=== PATIENT | male | born 1975 | race Caucasian/White ===

== ENCOUNTER 2016-10-01 06:28 | Day surgery (SDC) | payer OTHER ==
[~2016-10-01] VITALS: Ht 177.8 cm; Wt 79.6 kg
[2016-10-01] VITALS (10 sets, daily range): BP systolic 121–157; BP diastolic 67–93; PULSE 70–84; RESP 12–17; O2SAT 93–100
[~2016-10-01 06:28] MED LIST: CeFAZolin Inj 2 GM in IV Premix 1 EACH IV ONE; IBUP-1827 PO; Lactated Ringer's 1,000 ML IV SCH
[2016-10-01] MEDS ORDERED: Dexamethasone 4 mg/mL Inj ONE (06:29)
[2016-10-01] MEDS ORDERED: Propofol 10,000 mCg/mL 20 mL Inj ONE (06:29)
[2016-10-01] MEDS ORDERED: Ketamine 10 mg/mL 20 mL Inj ONE (06:29)
[2016-10-01] MEDS ORDERED: Ondansetron 2 mg/mL 2 mL Inj ONE (06:29)
[2016-10-01] MEDS ORDERED: fentaNYL-PF 50 mCg/mL 2 mL Inj ONE (06:29)
[2016-10-01] MEDS ORDERED: Lactated Ringer's 1,000 ML IV ONE (07:08)
[2016-10-01] MEDS ORDERED: Ketorolac 15 mg/mL Inj IVPUSH ONE (07:20)
[2016-10-01] MEDS ORDERED: HYDROcodone-APAP 5-325 mg Tablet PO PRN (07:20)
--- NOTE | 2016-10-01 07:26 | PCM.ORTHOP ---
Orthopedic Operative Report Date of Service: Oct 01, 2016 Pre Operative Diagnosis right distal biceps rupture Post Operative Diagnosis same Procedure right distal biceps repair Surgeon Surgeon: Demetrius Carroll MD Assistants: Kem Gómez Indication for Procedure right distal biceps rupture Findings per dictation Details of Procedure Operative Indications: Jeff Delacruz is a 41-year-old male right-hand dominant who presents with right distal biceps rupture A clear explanation was given to the patient regarding the condition, the conservative and surgical options. It was emphasized that the risks and benefits of surgery include but are not limited to infection, wound healing problems, damage to adjacent structures such as nerves, blood vessels and tendons, intermediate project manager disability and pain, arthritis, hypersensitivity, deep vein thrombosis, pulmonary embolism and loss of limb or life. The likely post operative recovery and the instructions that are to be followed after surgery were also discussed and explained. The patient was invited to ask questions or seek clarification but there were none. The patient voiced understanding of the entire discussion and requested to move forward. Procedure: The correct side was reconfirmed and marked as the correct side. The patient was taken to the OR and transferred to the OR table without incident. A time-out was performed reconfirming the patients identity, laterality of surgery and proper administration of preoperative antibiotics. After smooth induction of anesthesia the extremity was prepped and draped in a sterile fashion with 2% Clorhexadine solution. A sterile tourniquet was applied. The incision was clearly marked out. We paused to reconfirm the procedure and laterality one last time. Incision was made with a #15 blade and subsequent sharp dissection was performed with aid of electrocautery to control the bleeding down to the level of the fascia. Appropriate full thickness skin flaps were subsequently developed. There was notable disruption of biceps from the trauma. The interval between the BR and pronator teres was identified and developed down to the level of the joint capsule. The lateral antebrachial cutaneous nerve was identified and retracted. Recurrent veins were isolated and coagulated with a bipolar electrocautery. The forearm was fully supinated and the area vacated by the ruptured biceps was identified. Using blunt disection and the cautery the radial tuberosity was exposed until there was good visualization. At this time the biceps tendon was palpated retracted into the upper arm and was delivered out of the wound. The tendon's overall condition was ratty. The very end was debrided and then whipstitched in a grasping fashion with a Fiberloop. This allowed for a good grasping stitch. Provisionally it appeared that the tendon could be reduced down to the level of the radial tuberosity. The tuberosity was then debrided and a guidepin was placed slightly distal to the exact center of the insertion point. This was checked with Fluoro to ensure correct placement. The near cortex was then reamed with a 7.5mm reamer. A cortical button was attached to the end of the suture and the elbow flexed. The button was introduced through the bone tunnel flipped and then appropriate tension was applied to reduce the tendon to the bone. The reduction was secure and ROM was checked demonstrated that the biceps was not under too much tension. A interference screw was inserted. The tourniquet was let down and bleeding was controlled. The wound was irrigated copiously with sterile saline solution. Subcutaneous closure was achieved with 2-0 vicryl followed by interrupted 3-0 nylon suture. Steri strips were then applied. The wound was then dressed in a sterile fashion and a posterior splint was applied. The patient was awoken gently from anesthesia and transferred to the PACU in stable condition. JDE DEVELOPER SURGEON: During the operation, the services of physician surgical coordinator were medically indicated and necessary to provide exposure of the operative site for the surgical procedure and to maintain the limb in a proper position to carry out the operation safely and efficiently. Without the qualified chiropractic assistant being present, it would have extended the operative procedure and made the procedure technically more difficult to perform. Please keep dressing clean dry and intact. Do not remove dressing until follow- up in clinic. Do not weight-bear on the affected extremity. You will follow up in clinic in 10-14 days for suture removal, and placement of new Steri- Strips. You will follow-up with me in clinic without x-rays at this time. You will follow-up with me at 6 weeks postop and may start weightbearing as tolerated at 6-8 weeks. depending on your motion and pain level. Please keep the affected extremity elevated when possible. You may use ice and/or heat as needed for comfort (preferably ice during the first 48-72 hours. Please feel free to call with any further questions, comments, and/or concerns. You have been given medications for pain, medication for possible constipation which is a side affect of the pain medications. Grafts, Implants: Implants-See Implant Record Complications There were no periprocedural complications identified. Condition Stable Anesthetic Administered: GA Catheters: None Output, Estimated Blood Loss: 10 Blood Admin during surgery: No Surgical Cast or Splint: Long Arm Splint Surgical Specimen Removed: No Specimen sent to Pathology: No copies to: Demetrius Carroll MD, Christopher L MD Oct 01, 2016 07:26
[2016-10-01] MEDS ORDERED: Bacitracin 50,000 unit Inj IRRIGATION ONE (07:27)
[2016-10-01] MEDS ORDERED: Lactated Ringer's 1,000 ML IV SCH (07:54)
[2016-10-01] MEDS ORDERED: Lactated Ringer's 500 ML IV PRN (07:54)
--- NOTE | 2016-10-01 07:54 | PCM.HPANE ---
Patient Data Surgeon Admitting Provider: Attending Provider:Demetrius Carroll MD Primary Care Physician:Dave Other Provider:Ricky Casper Anesthesia Reason for Visit Right Distal Biceps Rupture Ht/WT & BMI Height (Feet): 5 Height (Inches): 10.00 Weight (Kilograms): 79.6 Body Mass Index 25.00 Allergies Coded Allergies: No Known Allergies (Verified Allergy, Unknown, 09/29/16) Past Anesthesia History Anesthesia History: Denies:: Abnormal Airway, Difficult Intubation Diabetes History Hx Diabetes?: No MRSA MRSA: No Medications Hypertension Medication: No Home Meds Incl Beta Toyin: No Reported Medications Ibuprofen 600 Mg [id number] Mg PO QID PRN For Pain Ref 0 09/29/16 Discontinued Scripts Acetaminophen 500 Mg Tablet1,000 Mg PO TID PRN For Pain #60 TABLET Prov:Bo Garcia MD 01/21/15 Ibuprofen 800 Mg [id number] Mg PO TID PRN For Pain #45 TABLET Ref 0 Prov:Bo Garcia MD 01/21/15 Clindamycin HCl (Cleocin)300 Mg [id number] Mg PO QID #40 CAPSULE Prov:Timothy Das MD 12/15/14 Oxycodone (Roxicodone)5 Mg [id number] Mg PO Q4H PRN For Pain #10 TABLET Ref 0 Prov:Timothy Das MD 12/15/14 [ox] No Conflict Check Prov:Timothy Das MD 12/15/14 History History of ENT Problems?: No HEENT History: Denies:: Abnormal Airway Cataracts Difficult Intubation Dysphagia Glaucoma Hearing Problem Sinus Problem TMJ Denture Type: None Teeth Condition: Within Normal Limits Hx of Heart Problems?: No Cardiovascular History: Denies:: AICD Abdominal Aortic Aneurism Atrial Fibrillation Cardiac Surgery Chest Pain Congestive Heart Failure Coronary Artery Disease Edema Heart Murmur Hypertension Irregular Heartbeat Pacemaker Peripheral Vascular Rheumatic Fever Thrombophlebitis Valvular Heart Disease Hx of Respiratory Problem?: No Respiratory History: Denies:: Asthma COPD Chest Surgery Cough Dyspnea Emphysema Hemoptysis Oxygen Administration Pneumonia Pulmonary Embolism Tuberculosis Use of C-PAP Machine Use of Inhalers / NEBS Hx Neurologic Problems?: No Neurological History: Denies:: Alzheimer's Disease CVA Dementia Dizziness Headaches Multiple Sclerosis Parkinson's Disease Peripheral Neuropathy Seizures TIA Hx of GI Problems?: No Gastrointestinal History: Denies:: Cirrhosis Diverticulitis Gall Bladder Disease Gastroesphageal Reflux Gastrointestinal Bleeding Heartburn Hepatitis Hiatal Hernia Liver Disease Rectal Bleeding Hx of Problems?: No Male Hx: Denies:: Prostate Problems Scrotal Mass Testicular Surgery Skin History: Denies:: History Skin Disorders? Pressure Ulcers Hx Musculoskeletal Problems?: Yes Musculoskeletal History: Positive for:: Musculoskeletal Trauma (right distal biceps rupture current admission problem) Psycho Social History: Denies:: Suicide Attempt Hx Surgeries?: No Hx Any Other Health Problems?: Yes Hx Diabetes: No Hx Alcohol Use: YesAlcoholic Drinks Per Day: 1- 3 drinks daily per prior EMR Hx Substance Use: Yes (Hx of meth, heroin, ecstasy use per EMR- ED OD 2014) Smoking Status: Former Smoker Have You Smoked inLast 12 mo: No Stop/Bang Treated for Sleep Apnea?: No Do You Have a CPAP Machine?: No P-Blood Pressure: treated: No B- Body Mass Index > 35 kg/m2: No A- Age over 50: No N- Neck Large Circumference: No G- Gender Male: Yes PATRICIA Risk Assessment: Low Risk, <3 Yes Risk Assessment Category Category 1A: Patient has history of documented sleep apnea, and HAS NOT received any narcotic, sedative or anesthesia administration during this stay. Category 1B: Patient has history of documented sleep apnea, and HAS received any narcotic , sedative or anesthesia administration during this stay Category 2: Patient has SUSPECTED Obstructive Sleep Apnea, and HAS received any narcotic , sedative or anesthesia administration during this stay. Category 3: Patient has SUSPECTED Obstructive Sleep Apnea and HAS NOT received narcotic, sedative or anesthesia administration during this stay. Category 4: Outpatient in Procedural Areas with known sleep apnea or who screen positive for High Risk via the STOP/BANG questionnaire. Exam Exam Vital Signs Vital Signs Date Time Temp Pulse Resp B/P Pulse Ox O2 Delivery O2 Flow Rate FiO2 10/01/16 07:09 36.5 72 17 157/93 100 Room Air General Appearance: Alert, Oriented X3, Cooperative, No Acute Distress HEENT/AIRWAY: MP 2 Lungs: Clear to Auscultation, Normal Air Movement Heart: Exam Unremarkable, Regular Rate/Rhythm, No Murmurs/Rubs/Gallops Meds/Labs/Diagnostics Admission Meds Current Medications Lactated Ringer's (Lr) 1,000 ml @ ud STK-MED ONCE IV Last administered on 10/01t 07:08; Start 10/01/16 at 07:08; Stop 10/01/16 at 07:09; Status DC Plan Impression Patient chart reviewed, patient interviewed and anesthestic plan with risks, benefits, and alternatives discussed, and informed consent obtained. ASA Physical Status: ASA1 Normal Healthy Anesthetic Plan: GA Bene/Risks/Altern/Consents: Yes HP Complete Prior to Induction: Yes William Hercules MD Oct 01, 2016 07:54
[2016-10-01] MEDS ORDERED: HYDROmorphone 1 mg/mL Inj IVPUSH PRN (07:55)
[2016-10-01] MEDS ORDERED: Ropivacaine-PF 0.5% 30 mL Inj INJ ONE (07:55)
[2016-10-01] MEDS ORDERED: EPHEDrine Sulfate 50 mg/mL Inj IVPUSH PRN (07:55)
[2016-10-01] MEDS ORDERED: MetoCLOpramide 5 mg/mL 2 mL Inj IVPUSH PRN (07:55)
[2016-10-01] MEDS ORDERED: Phenylephrine 10,000 mCg/mL Inj IVPUSH PRN (07:55)
[2016-10-01] MEDS ORDERED: fentaNYL-PF 50 mCg/mL 2 mL Inj IVPUSH PRN (07:55)
[2016-10-01] MEDS ORDERED: Dexamethasone 4 mg/mL Inj IVPUSH PRN (07:55)
[2016-10-01] MEDS ORDERED: Ondansetron 2 mg/mL 2 mL Inj IVPUSH PRN (07:55)
--- NOTE | 2016-10-01 10:03 | PCM.ANEP1 ---
Post Anesthesia PACU Phase 1 Assessment Vital Signs Vital Signs Date Time Temp Pulse Resp B/P Pulse Ox O2 Delivery O2 Flow Rate FiO2 10/01/16 09:36 74 16 127/82 93 Room Air 10/01/16 09:30 36.4 70 13 124/74 97 Room Air 10/01/16 09:15 83 15 121/77 98 Simple Mask 8 10/01/16 09:10 84 15 128/72 98 Simple Mask 8 10/01/16 09:05 73 14 98 Simple Mask 8 10/01/16 09:00 73 12 141/86 98 Simple Mask 8 10/01/16 08:55 74 13 134/77 98 Simple Mask 8 10/01/16 08:50 73 15 126/72 99 Simple Mask 8 10/01/16 08:48 36.2 78 12 121/67 98 Simple Mask 8 10/01/16 07:09 36.5 72 17 157/93 100 Room Air Anesthetic Administered: GA Level of Alertness: Sleepy, easy to arouse OSEI's with Equal Strength: Yes Pain: Yes Nausea or Vomiting: No CV Function & Hydration Stable: Yes Airway Device: LMA Oxygen Delivery: Simple Mask Lungs: Clear to Auscultation, Normal Air Movement Dermatome Level: Full Sensation PACU Phase 2 Assessment Complications: No Follow up Care: No Patient Instructions Provided: N/A William Hercules MD Oct 01, 2016 10:03
== END 2016-10-01 23:59 | disposition home or self-care (01) ==
LOC: SAS 06:28
PROVIDERS: ATTEND Orthopaedic Surgery
DX: S46.211A Strain of muscle, fascia and tendon of other parts of biceps, right arm, initial encounter (principal); X50.0XXA Overexertion from strenuous movement or load, initial encounter; Y93.89 Activity, other specified; Y92.9 Unspecified place or not applicable; Y99.8 Other external cause status; Z87.891 Personal history of nicotine dependence; Z87.898 Personal history of other specified conditions
CPT/HCPCS: 24342; C1713; J0690; J1100; J1170; J1885; J2250; J2405; J2704; J2795; J3010; J7120

== ENCOUNTER 2016-10-11 13:34 | Emergency (ER) | payer OTHER, MEDICAID ==
[~2016-10-11] VITALS: Ht 177.8 cm; Wt 81.8 kg
[~2016-10-11 13:34] MED LIST changes: -CeFAZolin Inj 2 GM in IV Premix 1 EACH IV ONE; -Lactated Ringer's 1,000 ML IV SCH
[2016-10-11 14:45] VITALS: BP 143/97; PULSE 68; RESP 20; O2SAT 97
--- NOTE | 2016-10-11 15:16 | ED.REPORT ---
HPI-Extremity Problem Upper Date of Service Oct 11, 2016 ED Provider: Dr. Fields Pt is a healthy 41 y/o male presenting to the ED for splint evaluation. The patient had a right biceps tendon repair on 10/01/16 due to a tendon rupture and was placed in a splint. The patient is in residential currently and the splint became wet in the shower and broke. There was a plan for a 2 week follow-up to remove sutures and have a check up. Nursing Notes Stated Complaint: RE-EVAL OF LT ARM CAST Chief Complaint: Wound Recheck/Suture Removal Nursing Notes Reviewed: Yes Allergies: Coded Allergies: No Known Allergies (Verified Allergy, Unknown, 10/11/16) Scheduled PRN Ibuprofen (Ibuprofen) 600 Mg Tablet 600 MG PO QID PRN PRN For Pain General Time Seen by MD: 15:16 Chief Complaint Other (splint eval) Hx Obtained From: Patient, Police Arrived By: Police Onset Occurred: 1 - 4 hours ago Symptom Duration: Since onset Exacerbated by: Range of motion Recent Healthcare: Previous surgery Past Medical History Past Medical History Amphetamine and opioid addiction Heroin overdose Past Surgical History Right bicep tendon repair Smoking History Former Smoker Social History Alcohol Use: 1-3 per week Drug Use: Meth, THC, Other Ambulatory Status Independent Review of Systems Review of Systems Note: No complaints Constitutional: Denies: Chills, Fever Skin: Denies Rash Complete sys rev & neg: except as marked. GI: Denies: Nausea, Vomiting Physical Exam Initial Vital Signs Vital Signs (First) Date Time Temp Pulse Resp B/P Pulse Ox O2 Delivery O2 Flow Rate FiO2 10/11/16 13:34 Room Air 10/11/16 14:45 36.6 68 20 143/97 97 Initial VS: Reviewed, Vital signs normal Head / Eyes: Atraumatic, Normocephalic ENT: Mucous membranes moist Neck: Full range of motion Respiratory: No respiratory distress Cardiovascular: Intact distal pulses Abdomen / GI: No distention Skin: Warm, Dry, No cyanosis Neurologic: Alert, Oriented, Nonfocal Psychiatric: Mood/affect normal, Behavior normal, Normal thought content General/Constitutional: Awake, Alert, No acute distress, Well appearing, Cooperative, Not toxic appearing Upper Extremity / MS: No erythema, No deformity, Neurologic intact, Vascular intact Wound is clean, dry, and intact No complication Re-Eval/Medical Decision Med Decision/Clinical Course Splint replaced. I recommend that this patient not take his splint off And follow with Ortho Source of Hx: Old records Re-Evaluation/Progress : Time of Eval: 15:42 Re-Evaluation/Progress Note: Pt rechecked. Splint applied by tech. Informed pt of plan for discharge. Pt understands and agrees with plan for discharge. F/U instructions and RTER warnings given. All questions addressed. Counseled Regarding: Diagnosis, Need for follow-up, When/why to return to ED Discharge & Departure Impression: Primary Impression: Biceps tendon rupture Encounter type: subsequent encounter Laterality: right Qualified Code: S46.111D - Strain of muscle, fascia and tendon of long head of biceps, right arm , subsequent encounter Disposition: Home Discharge Condition All VS Reviewed: Yes Condition: Stable Patient Instructions: Repairs of the Biceps and Triceps Tendons (DC) Additional Instructions: Keep the splint applied until seen by Dr. Carroll on your scheduled follow-up. Return to the emergency department if you experience any concerning symptoms. Referrals: Demetrius Carroll MD Scribe Attestation Portions of this note were transcribed by Randall Muñiz. I, Dr. Fields personally performed the history, physical exam and medical decision-making; I reviewed and confirmed the accuracy of the information in the transcribed note. copies to: Demetrius Carroll MD, Timothy Andrew TIJERINA Oct 11, 2016 15:16 RANDALL MUÑIZ Oct 11, 2016 15:26
[2016-10-11 16:15] VITALS: BP 139/91; PULSE 73; RESP 20; O2SAT 96
== END 2016-10-11 16:16 | disposition home or self-care (01) ==
LOC: SED 13:34
DX: S46.111D Strain of muscle, fascia and tendon of long head of biceps, right arm, subsequent encounter (principal); X58.XXXD Exposure to other specified factors, subsequent encounter; Y93.89 Activity, other specified; Y99.8 Other external cause status; Y92.89 Other specified places as the place of occurrence of the external cause; F15.20 Other stimulant dependence, uncomplicated; F11.20 Opioid dependence, uncomplicated; F12.10 Cannabis abuse, uncomplicated; Z87.891 Personal history of nicotine dependence